=== PATIENT | male | born 1955 | race Caucasian/White ===

== ENCOUNTER 2025-06-10 21:00 | Emergency (ER) | payer MEDICARE, OTHER ==
[~2025-06-10] VITALS: Ht 167.6 cm; Wt 91.0 kg
[2025-06-10 21:22] VITALS: O2SAT 98
[2025-06-10 22:27] LABS: BASOPHILS % 1.0 % (0.0-2.0); EOSINOPHILS % 4.1 % (0.0-5.0); HEMATOCRIT. 41.0 % (42.0-52.0); HEMOGLOBIN. 13.9 g/dL (14.0-18.0); LYMPHOCYTES % 13.5 % (20.0-50.0); MEAN PLATELET VOLUME 9.4 fl (7.4-10.4); MONOCYTES % 8.9 % (2.0-8.0); NEUTROPHILS % 72.5 % (40.0-76.0); PLATELET 229 x1000/uL (130-400); RED BLOOD CELL COUNT 4.66 mill/uL (4.7-6.1); RED CELL DISTRIBUTION WIDTH 13.0 % (11.6-14.6)
[2025-06-10 22:42] LABS: CREATININE 1.8 mg/dL (0.6-1.3); ETHANOL BLOOD < 10 mg/dL (<10); UREA NITROGEN BLOOD 24 mg/dL (9-23)
[2025-06-10 22:43] LABS: PROTEIN TOTAL 7.3 g/dL (6.0-8.3); TROPONIN I HIGH SENSITIVITY 4 ng/L (3.0-53)
[2025-06-10 22:44] LABS: ASPARTATE AMINOTRANSFERASE 19 IU/L (<34); BILIRUBIN DIRECT < 0.1 mg/dL (<=3.0); BILIRUBIN TOTAL 0.3 mg/dL (0.1-1.0); PHOSPHORUS 3.6 mg/dL (2.5-4.9)
[2025-06-10] MEDS: ONDANSETRON HCL 4MG/2ML INJ IV ONE (22:56)
[2025-06-10] MEDS: MECLIZINE 25MG TABLET PO ONE (22:56)
[2025-06-10] MEDS ORDERED: MECL-299 MT (23:36)
[2025-06-10] MEDS ORDERED: ONDA4TAB50 MT (23:36)
[2025-06-11 00:09] VITALS: BP 137/90; PULSE 97; RESP 16; TEMP 37.2; O2SAT 98
== END 2025-06-11 00:10 | disposition home or self-care (01) ==
LOC: ER 21:00 → CMPBEDREQ 06-11 07:48
DX: R42 Dizziness and giddiness (principal); R55 Syncope and collapse; E11.9 Type 2 diabetes mellitus without complications; R06.02 Shortness of breath; Z79.899 Other long term (current) drug therapy
CPT/HCPCS: 80076; 80048; 80320; 83880; 83735; 84100; 85025; 84484; 36415; 71045; 70450; 93005; 96374; 99285; J8597; J2405; G0480